=== PATIENT | female | born 1975 | race Hispanic/Latino ===

== ENCOUNTER 2020-10-13 01:06 | Emergency (ER) | payer OTHER, SELFPAY ==
[2020-10-13 02:09] LABS: Absolute Lymphocytes (CBC) 2.2 K/uL (0.7-4.9); Basophils % 0.8 % (0-1.3); Hematocrit 34.8 % (36.0-45.0); Lymphocytes % 23.7 % (15.3-44.8); MPV 8.2 fL (7.6-11.3)
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
[2020-10-13 02:17] LABS: BUN Blood Urea Nitrogen 8 mg/dL (7-18); Bicarbonate 23 mmol/L (21-32); Glucose Level 108 mg/dL (74-106); Potassium 3.5 mmol/L (3.5-5.1); Sodium Level 144 mmol/L (136-145)
[2020-10-15 20:21] VITALS: BP 113/86; TEMP 98.2; O2SAT 100
== END 2020-10-13 02:15 | disposition left against medical advice (07) ==
LOC: ER 01:06
DX: S31.110A Laceration without foreign body of abdominal wall, right upper quadrant without penetration into peritoneal cavity, initial encounter (principal); W26.0XXA Contact with knife, initial encounter; Y93.G3 Activity, cooking and baking; Y92.009 Unspecified place in unspecified non-institutional (private) residence as the place of occurrence of the external cause; Z98.82 Breast implant status
CPT/HCPCS: 36415; 80048; 84703; 85025; 99283

== ENCOUNTER 2022-04-02 15:06 | Emergency (ER) | payer SELFPAY ==
[2022-04-02 17:29] LABS: Absolute Lymphocytes (CBC) 2.2 K/uL (0.7-4.9); Hematocrit 38.8 % (36.0-45.0); Lymphocytes % 22.3 % (15.3-44.8); MPV 8.5 fL (7.6-11.3); RBC Red Blood Cell Count 4.18 M/uL (3.86-4.86)
[2022-04-02 17:44] LABS: Albumin 3.5 g/dL (3.4-5.0); Bilirubin Total 0.9 mg/dL (0.2-1.0); Potassium 3.7 mmol/L (3.5-5.1); Protein, Total 6.8 g/dL (6.4-8.2)
--- NOTE | 2022-04-02 18:11 | RAD REPORT ---
EXAM DESCRIPTION: CT - Abdomen Pelvis W Contrast - 04/02/2022 5:59 pm CLINICAL HISTORY: Abdominal pain COMPARISON: 2015 TECHNIQUE: Computed axial tomography of the abdomen pelvis was obtained. 100 cc Isovue-300 was admin istered intravenously. Oral contrast was not requested which limits evaluation of bowel and appendix All CT scans are performed using dose optimization technique as appropriate and may include automated exposure control or mA/KV adjustment according to patient size. FINDINGS: Cholecystectomy. Mild fatty liver The spleen, pancreas, adrenal and kidneys appear unremarkable. There is no evidence of diverticulitis. Mild thickening of the wall of the ascending colon. Bladder wall appears mildly thickened. No adnexal mass IMPRESSION: Mild thickening of the wall of the ascending colon may indicate a mild colitis Mild thickening of the wall of the bladder may be secondary to a cystitis or incomplete distention.
--- NOTE | 2022-04-02 18:15 | EDPHYS ---
Physician Documentation [facility] Name: Radhika Arora Age: 46 yrs Sex: Female : 1975 Arrival Date: 04/02/2022 Time: 15:[address] Private MD: ED Physician Josiah Johnson HPI: 04/02 16:05 This 46 yrs old Female presents to ER via Ambulatory with complaints of kb Abdominal Pain. 16:05 The patient presents with abdominal pain in the upper abdomen. Onset: The kb symptoms/episode began/occurred today. The symptoms do not radiate. Associated signs and symptoms: none. The symptoms are described as constant. Modifying factors: The symptoms are alleviated by nothing, the symptoms are aggravated by nothing. Severity of pain: At its worst the pain was moderate in the emergency department the pain is unchanged. The patient has not experienced similar symptoms in the past. The patient has not recently seen a physician. Pt reports upper abd pain that started today. Has had similar pain in the past so her dr sent her here for evaluation. 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 - Social history:: Smoking status: Patient reports the use of cigarette tobacco products, denies chronic smoking, but will smoke occasionally. ROS: 16:04 Constitutional: Negative for fever, chills, and weight loss. kb 16:04 Abdomen/GI: Positive for abdominal pain. 16:04 All other systems are negative. Exam: 16:04 Constitutional: This is a well developed, well nourished patient who is awake, alert, kb and in no acute distress. Head/Face: Normocephalic, atraumatic. ENT: Moist Mucous membranes Cardiovascular: Regular rate and rhythm with a normal S1 and S2. No gallops, murmurs, or rubs. No pulse deficits. Respiratory: Respirations even and unlabored. No increased work of breathing. Talking in full sentences Skin: Warm, dry with normal turgor. Normal color. MS/ Extremity: Pulses equal, no cyanosis. Neurovascular intact. Full, normal range of motion. Neuro: Awake and alert, GCS 15, oriented to person, place, time, and situation. Moves all extremities. Normal gait. Psych: Awake, alert, with orientation to person, place and time. Behavior, mood, and affect are within normal limits. 16:04 Abdomen/GI: Inspection: abdomen appears normal, Bowel sounds: normal, in all quadrants, Palpation: soft, in all quadrants, moderate abdominal tenderness, in the right upper quadrant and left upper quadrant. Vital Signs: 15:27 BP 135 / 93; Pulse 81; Resp 16; Temp 98.2; Pulse Ox 99% ; Weight 60.33 kg; Height 4 ft. ll1 11 in. (152 cm); Pain 8/10; 18:00 BP 121 / 80; Pulse 66; Resp 12 S; Pulse Ox 98% on R/A; jg9 15:27 Body Mass Index 26.11 (60.33 kg, 152 cm) ll1 MDM: 15:32 Patient medically screened. kb 16:04 Data reviewed: vital signs, nurses notes. Data interpreted: Pulse oximetry: on room air kb is 99 %. Interpretation: normal. 18:13 Counseling: I had a detailed discussion with the patient and/or guardian regarding: the kb historical points, exam findings, and any diagnostic results supporting the discharge/admit diagnosis, lab results, radiology results, the need for outpatient follow up, a family practitioner, to return to the emergency department if symptoms worsen or persist or if there are any questions or concerns that arise at home. 04/02 15:33 Order name: CBC with Diff; Complete Time: 17:31 kb 04/02 15:33 Order name: CMP; Complete Time: 17:50 kb 04/02 15:33 Order name: Lipase; Complete Time: 17:50 kb 04/02 15:33 Order name: CT Abd/Pelvis - IV Contrast Only; Complete Time: 18:13 kb 04/02 15:33 Order name: IV Saline Lock; Complete Time: 17:18 kb 04/02 15:33 Order name: Labs collected and sent; Complete Time: 17:18 kb Administered Medications: No medications were administered Disposition: 22:31 Co-signature as Attending Physician, Josiah Jhonson DO I was immediately available on-site ms3 in the Emergency Department for consultation in the care of the patient. . Disposition Summary: 04/02/22 18:14 Discharge Ordered Location: Home kb Condition: Stable kb Diagnosis - Colitis kb Followup: kb - With: Emergency Department - When: As needed - Reason: Worsening of condition Followup: kb - With: Private Physician - When: 2 - 3 days - Reason: Recheck today's complaints, Continuance of care, Re-evaluation by your physician Discharge Instructions: - Discharge Summary Sheet kb - Colitis kb Forms: - Medication Reconciliation Form kb - Thank You Letter kb - Antibiotic Education kb - Prescription Opioid Use kb Prescriptions: - Flagyl 500 mg Oral Tablet - take 1 tablet by ORAL route every 8 hours for 10 days; 30 tablet; Refills: 0, kb Product Selection Permitted - Cipro 500 mg Oral Tablet - take 1 tablet by ORAL route every 12 hours for 10 days; 20 tablet; Refills: 0, kb Product Selection Permitted Signatures: Dispatcher [employer] EDDanyelle Reich, RECREATION ATTENDANT SUPERVISOR-C RECREATION ATTENDANT SUPERVISOR-Renea Bender, RN RN ll1 Josiah Johnson DO DO ms3 Lucia Jesus RN RN jg9
--- NOTE | 2022-04-02 18:15 | ER ---
Nurse's Notes [facility] Name: Radhika Arora Age: 46 yrs Sex: Female : 1975 Arrival Date: 04/02/2022 Time: 15:[address] Private MD: Diagnosis: Colitis Presentation: 04/02 15:21 Chief complaint: Patient states: Sent in by Dr. Pacheco for eval of upper abd pain with ll1 nausea. Ebola Screen: Patient denies travel to an Ebola-affected area in the 21 days before illness onset. Risk Assessment: Do you want to hurt yourself or someone else? Patient reports no desire to harm self or others. 15:21 Method Of Arrival: Ambulatory ll1 15:21 Acuity: PAYAL 3 ll1 15:22 Initial Sepsis Screen: Does the patient have a suspected source of infection? Yes: ll1 Acute abdominal pain. 15:27 Coronavirus screen: Vaccine status: Patient reports being unvaccinated. Client denies ll1 travel out of the [place] in the last 14 days. At this time, the client does not indicate any symptoms associated with coronavirus-19. Initial Sepsis Screen: Does the patient meet any 2 criteria? No. Patient's initial sepsis screen is negative. Onset of symptoms was April 02, 2022. Triage Assessment: 15:23 General: Appears uncomfortable, Behavior is cooperative, appropriate for age. Pain: ll1 Complains of pain in abdomen Quality of pain is described as aching, crampy. GI: Reports upper abdominal pain. 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 - Social history:: Smoking status: Patient reports the use of cigarette tobacco products, denies chronic smoking, but will smoke occasionally. Screenin:30 Abuse screen: Denies threats or abuse. Denies injuries from another. Nutritional jg9 screening: No deficits noted. Tuberculosis screening: No symptoms or risk factors identified. Fall Risk None identified. Assessment: 17:30 GI: Bowel sounds present X 4 quads. Abd is soft X 4 quads Abdomen is tender to jg9 palpation in epigastric area. 18:00 Reassessment: No changes from previously documented assessment. Patient and/or family jg9 updated on plan of care and expected duration. Pain level reassessed. Patient is alert, oriented x 3, equal unlabored respirations, skin warm/dry/pink. Vital Signs: 15:27 BP 135 / 93; Pulse 81; Resp 16; Temp 98.2; Pulse Ox 99% ; Weight 60.33 kg; Height 4 ft. ll1 11 in. (152 cm); Pain 8/10; 18:00 BP 121 / 80; Pulse 66; Resp 12 S; Pulse Ox 98% on R/A; jg9 15:27 Body Mass Index 26.11 (60.33 kg, 152 cm) ll1 ED Course: 15:10 Patient arrived in ED. mr 15:14 Danyelle Moeller, CHICHO is PHCP. kb 15:14 Josiah Johnson DO is Attending Physician. kb 15:21 Arm band placed on. ll1 15:22 Triage completed. ll1 17:15 Patient has correct armband on for positive identification. Placed in gown. Bed in low jg9 position. Call light in reach. 17:18 Inserted saline lock: 20 gauge in right antecubital area, using aseptic technique. zm Blood collected. 17:18 CBC with Diff Sent. zm 17:18 CMP Sent. zm 17:18 Lipase Sent. zm 17:27 Lucia Jesus, RN is Primary Nurse. jg9 18:02 CT Abd/Pelvis - IV Contrast Only In Process Unspecified. EDMS 18:29 No provider procedures requiring assistance completed. jg9 18:30 IV discontinued. jg9 Administered Medications: No medications were administered Medication: 17:30 VIS not applicable for this client. jg9 Outcome: 18:14 Discharge ordered by . kb 18:29 Discharged to home ambulatory. jg9 18:29 Condition: stable 18:29 Discharge instructions given to patient, Instructed on discharge instructions, follow up and referral plans. Demonstrated understanding of instructions, follow-up care, medications, Prescriptions given X 2. 18:30 Patient left the ED. jg9 Signatures: Dispatcher [employer] EDMS Danyelle Moeller, PAPER PATTERN INSPECTOR-C PAPER PATTERN INSPECTOR-Ckb Peter, Kathryn mr Renea Sutton, RN RN ll1 Lucia Jesus RN RN jg9 Alexandra Tam Corrections: (The following items were deleted from the chart) 15:28 15:21 Chief complaint: Patient states: Sent in by Dr. Pacheco for eval of RUQ abd pain. ll1ll1
[2022-04-02 18:38] VITALS: TEMP 98.2
[2022-04-02 18:40] VITALS: BP 121/80; O2SAT 98
== END 2022-04-02 18:30 | disposition home or self-care (01) ==
LOC: ER 15:06
DX: K52.9 Noninfective gastroenteritis and colitis, unspecified (principal); E03.9 Hypothyroidism, unspecified; K21.9 Gastro-esophageal reflux disease without esophagitis; F17.210 Nicotine dependence, cigarettes, uncomplicated
CPT/HCPCS: 36415; 74177; 80053; 83690; 85025; 99284; Q9967